=== PATIENT | male | born 1995 | race Caucasian/White ===

== ENCOUNTER 2018-09-08 01:39 | Emergency (ER) | payer SELFPAY ==
[2018-09-08 01:41] VITALS: BP 108/76; PULSE 101; RESP 16; TEMP 36.5; O2SAT 100; BMI 38.5
[2018-09-08] MEDS: 0.9% Normal Saline 1,000 ML 250 ML IV (01:55)
[2018-09-08] MEDS: Ondansetron 4 MG/2 ML Vial IV (01:55)
[2018-09-08] MEDS: Ketorolac 30 MG/ML Syringe IV (01:57)
[2018-09-08] MEDS: Morphine 4 MG/ML Syringe IV ×2 (01:58→03:05)
--- NOTE | 2018-09-08 02:08 | CT_ITS ---
STUDY: CT ABDOMEN AND PELVIS WITHOUT CONTRAST REASON FOR EXAM: Male, 23 years old. Right-sided flank pain. Patient has history of kidney stones. RADIATION DOSAGE (If Supplied By Facility): CTDIvol = ( 23.66 ) mGy, DLP = ( 1395.26 ) mGycm TECHNIQUE: Transaxial images were obtained from the dome of the diaphragm to the symphysis pubis without oral contrast, and without intravenous contrast. Sagittal and coronal images were reconstructed. Individualized dose optimization techniques were used for this CT. COMPARISON: None. FINDINGS: The visualized lung bases are unremarkable. The visualized portions of the heart are within normal limits. Normal liver. There is increased attenuation the gallbladder suggesting presence of gallstones and/or biliary sludge. Normal spleen. Normal pancreas. Normal bilateral adrenal glands. Both kidneys have multiple nonobstructing renal calculi measuring up to 2 mm. There is mild right-sided hydronephrosis and hydroureter secondary to a distal ureteral calculus measuring approximately 2 mm in size. Normal visualized stomach. There is no evidence for dilated bowel, ascites or pneumoperitoneum. The small bowel has a grossly normal appearance. The descending colon and sigmoid colon are nondistended which gives an appearance of mild thickening of the brown. Stool is visible elsewhere in the colon. There is suggestion for abnormal thickening of the brown of the proximal transverse colon as well that measures up to 9.5 mm in thickness. The appendix is visualized and appears normal. Normal abdominal aorta. Normal inferior vena cava. There is borderline retroperitoneal lymphadenopathy with enlarged nodes no greater than 10mm in the short axis diameter. Normal urinary bladder. Normal visualized prostate gland. There is a small umbilical hernia containing fat. Normal osseous structures. CT/Abdomen/Pelvis without Cont IMPRESSION: 1. Mild right-sided hydronephrosis and hydroureter secondary to distal ureteral calculus. 2. Bilateral nonobstructing renal calculi. 3. Probable cholelithiasis. 4. Nonspecific thickening of the brown of the colon may be the result of acute or chronic colitis. Electronically Signed: Nani Cantrell MD at 3:14 EST , Service support ,
--- NOTE | 2018-09-08 03:08 | ED.VISSUMM ---
- ER Visit Summary Date of Service: 09/08/18 Chief Complaint: Right flank pain History of Present Illness: The patient is a 23 M with no primary care physician. He reports his right flank pain began abruptly 1 hour ago. Pain was 8 out of 10 at worst and 7-10 currently. He describes it as sharp. Is worsened by nothing relieved by nothing. Is been nausea and vomited twice. No blood in his emesis. His last bowel was today. He said no diarrhea, melena, or hematochezia. No dysuria, frequency, or hematuria. Reports this is similar to when he had kidney stones in the past. Physical Examination: Vitals: Stable. Afebrile. General: Well-nourished and well-developed. Head: Normocephalic atraumatic. Neck: Supple, no lymphadenopathy. No JVD. Nontender. Cardiovascular: Regular rate and rhythm. No murmurs. Respiratory: No respiratory distress. Clear to auscultation bilaterally. Abdominal: Soft, nontender, nondistended, normal bowel sounds. No guarding, rebound, or peritoneal signs. Back: Mild right CVA tenderness. Extremities: Nontender, no edema. Skin: Normal color, no rash. Neurologic: Alert and oriented ?3. Cranial nerves II through XII are intact. Normal strength and sensation. Psych: Normal affect. Test Results: CT flank shows multiple nonobstructing renal calculi bilaterally. Mild right hydronephrosis/hydroureter secondary to a distal ureteral calculus its approximately 2 mm in size. UA is negative. Emergency Department Course and Treatment: Patient had an IV placed. He was treated with Toradol, Zofran, and morphine IV. He is resting comfortably. Treatment Plan: Patient will be discharged with Zofran, naproxen, and Percocet. Instructed to follow-up with Dr. Batista in 1 week if not improving. Return to the emergency department for any worsening symptoms. Disposition: To home in improved and stable condition. Impression: 1. Right ureterolithiasis. This note was generated with [employer] dictation software. It may contain incorrect words, spelling, and punctuation that were not noted in review of the chart prior to signing ED Disposition - Plan for ED Patient: Chief Complaint: Complaint Instructions: ED Stone Renal W Colic Prescriptions: Oxycodone HCl/Acetaminophen [Percocet 5/325] 1 tablet PO Q6H PRN PRN 3 Days #12 tablet PRN Reason: Pain Ondansetron [Zofran Odt] 4 mg PO Q8H PRN PRN #10 tablet PRN Reason: Nausea Naproxen [Naprosyn] 500 mg PO BID #14 tablet Referrals: Marcos Batista MD [STAFF PHYSICIAN] - 1 Week if not improving
[2018-09-08 04:14] LABS: Color, Urine Yellow (Yellow); Glucose, Dipstick Normal (Normal); Ketone-Dipstick 5 mg/dl (Negative); Leukocyte Esterase-Dipstick Negative /ul (Negative); Nitrite-Dipstick Negative (Negative); Occult Blood-Urine 50 /ul (Negative); Protein-Dipstick 15 mg/dl (Negative); Urine Bilirubin Dipstick Negative (Negative); Urine Clarity Sl. Cloudy (Clear); Urine Urobilinogen 1 mg/dl (Normal)
[2018-09-08 04:24] LABS: Mucous, Urine RARE /hpf (<or=2+); Red Blood Cells-Urine 10-25 SEEN /hpf (0-5); Squamous Epithelial Cells - UA 0-5 SEEN /hpf (0-5); White Blood Cells 0-5 SEEN /hpf (0-5)
[2018-09-08 04:25] LABS: Bacteria RARE /hpf (None Seen)
[2018-09-08] MEDS: Ondansetron ODT 4 MG Tablet PO (05:22)
[2018-09-08] MEDS: oxyCODONE 5 MG Tablet PO (05:22)
[2018-09-08 05:26] VITALS: BP 148/71; PULSE 81; RESP 16; O2SAT 98
== END 2018-09-08 05:27 | disposition home or self-care (01) ==
LOC: ED 02:37
PROVIDERS: Emergency Provider Emergency Medicine
DX: N13.2 Hydronephrosis with renal and ureteral calculous obstruction (principal); Z87.442 Personal history of urinary calculi
CPT/HCPCS: 74176; 81001; 96361; 96374; 96375; 96376; 99283; J7030; A4216; J2405

== ENCOUNTER 2018-12-24 16:57 | Emergency (ER) | payer OTHER, SELFPAY ==
[2018-12-24 16:58] VITALS: BP 143/95; PULSE 84; RESP 16; TEMP 36.8; O2SAT 98; BMI 36.2
--- NOTE | 2018-12-24 17:05 | CT_ITS ---
STUDY: CT ABDOMEN AND PELVIS WITHOUT CONTRAST REASON FOR EXAM: Male, 23 years old. Left-sided flank pain. RADIATION DOSAGE (If Supplied By Facility): CTDIvol = ( 23.06 ) mGy, DLP = ( 1238.78 ) mGycm TECHNIQUE: Transaxial images were obtained from the dome of the diaphragm to the symphysis pubis without oral contrast, and without intravenous contrast. Sagittal and coronal images were reconstructed. Individualized dose optimization techniques were used for this CT. COMPARISON: CT of abdomen and pelvis dated September 08, 2018. FINDINGS: The visualized lung bases are unremarkable. The visualized portions of the heart are within normal limits. Normal liver. The gallbladder is contracted. There is heterogeneous attenuation of the gallbladder suggesting possible cholelithiasis. There is mild splenomegaly. Normal pancreas. Normal bilateral adrenal glands. There are multiple nonobstructing renal calculi in both renal collecting systems with largest measuring about 3 mm. There is mild left-sided hydronephrosis and hydroureter secondary to a distal ureteral calculus measuring 4 mm in greatest dimension. The right kidney has a normal appearance otherwise. There is fluid distention of the stomach. There is no evidence for dilated bowel, ascites or pneumoperitoneum. The small bowel has a grossly normal appearance. The descending colon is mildly distended with mild thickening of the brown. There are scattered colonic diverticula. There is also mild thickening of the brown of sigmoid colon. The appendix is visualized and appears normal. Normal abdominal aorta. Normal inferior vena cava. Normal retroperitoneum. Normal urinary bladder. Normal visualized prostate gland. There is a small umbilical hernia containing fat. Normal osseous structures. CT/Abdomen/Pelvis without Cont IMPRESSION: Mild left-sided hydronephrosis and hydroureter secondary to distal ureteral calculus. Electronically Signed: Nani Cantrell MD at 18:12 EDT , Service support ,
[2018-12-24] MEDS: 0.9% Normal Saline 1,000 ML 125 ML IV (17:13)
[2018-12-24] MEDS: HYDROmorphone 1 MG/ML Syringe IV ×2 (17:13→19:06)
[2018-12-24] MEDS: Ketorolac 30 MG/ML Syringe IV (17:14)
[2018-12-24] MEDS: Ondansetron 4 MG/2 ML Vial IV (17:14)
[2018-12-24 17:29] LABS: Absolute Lymphocyte Count 3.09 X10^3/ul (0.83-4.51); Absolute Neutrophil Count 5.8 X10^3/uL (2.0-7.7); Basophil# 0.08 X10^3/uL; Basophil% 0.8 % (0-1); Eosinophil# 0.37 X10^3/uL; Eosinophils% 3.6 % (0-5); Hematocrit 48.1 % (40-54); Hemoglobin 17.1 g/dl (13.0-16.5); Lymphocyte # 3.09 X10^3/ul (4.0); Lymphocyte % 30.1 % (19-41); Mean Corp Hgb Conc 35.6 g/gl (32-36); Mean Corpuscular Hgb 29.5 pg (27.0-32.0); Mean Corpuscular Volume 83.1 fL (80-94); Mean Platelet Vol. 11.1 fl (6.2-12.0); Monocyte# 0.89 X10^3/uL; Monocyte% 8.7 % (0-10); Neutrophil # 5.75 X10^3/uL (2.7-7.7); Platelet Count 246 K/mm3 (150-450); RBC Distribution Width CV 12.5 % (11.6-14.6); RBC Distribution Width SD 37.5 fl (35.1-43.9); Red Blood Count 5.79 M/mm3 (4.6-6.2); White Blood Count 10.3 K/mm3 (4.4-11.0)
[2018-12-24 17:30] LABS: POSITIVE COUNT NO; POSITIVE DIFFERENTIAL NO; POSITIVE MORPHOLOGY NO
[2018-12-24 17:46] LABS: Anion Gap 9 (5-15); BUN 10 mg/dL (7-18); BUN/Creat Ratio 9.2 RATIO (10-20); Calcium,Total 9.1 mg/dL (8.5-10.1); Chloride 101 mmol/L (98-107); Creatinine, Serum 1.09 mg/dL (0.70-1.30); EST Glomerular Filtration Rate 88 mL/min (>60); Est Glom Filt Rate - Afr Amer 107 mL/min (>60); Estimated Creatinine Clearance 122.55 ml/min; Glucose 107 mg/dL (74-106); Potassium 3.3 mmol/L (3.5-5.1); Sodium Level 136 mmol/L (136-145)
--- NOTE | 2018-12-24 18:26 | ED.DCSUM_ITS ---
- ER Visit Summary Date of Service: 12/24/18 Chief Complaint: [Left flank pain] History of Present Illness: The patient is a 23 M [presents to the emergency department with pain in his left flank that started about an hour and a half ago. Patient states the pain initially was mild but then became severe. Patient is been sweating. Patient had similar pain in the past when his past kidney stones. His last kidney stone was over New Year's. Patient denies any fevers. He has had nausea but no vomiting. He denies any dysuria, urgency, or frequency.] Physical Examination: [HEENT-PERRLA, EOMI. Cranial nerves II through XII grossly intact. TMs clear. Mucous membranes moist. No adenopathy. Patient pacing in room and somewhat diaphoretic. Cardiovascular-regular rate and rhythm without murmur or ectopy Lungs-clear to auscultation, chest wall stable without crepitus or subcu emphysema Abdomen-normoactive bowel sounds, sof. Patient has some tenderness over left lower quadrant. Patient has CVA tenderness on the left.t Extremities-intact ?4, normal range of motion, normal pulses, atraumatic] Test Results: [CBC with differential was normal. Chemistries unremarkable other than a slightly depressed potassium of 3.3. CT flank showed a 4 mm distal left ureteral stone.] Urinalysis showed blood otherwise no signs of infection Emergency Department Course and Treatment: [Patient was medicated with Toradol, Zofran, and Dilaudid. Patient pain mostly resolved.] Treatment Plan: [Patient was given urine strainers and a prescription for Naprosyn and [place]. Patient was given referral to urologist for follow-up.] Disposition: [Discharged home in stable condition. Patient advised to return if increasing pain, fever, vomiting, or conditions worsen anyway.] Impression: [Kidney stone with colic] This note was generated with [employer] dictation software. It may contain incorrect words, spelling, and punctuation that were not noted in review of the chart prior to signing ED Disposition - Plan for ED Patient: Instructions: ED Stone Renal W Colic Prescriptions: Hydrocodone Bitart/Apap 5-325 [[place] 5MG-325MG] 1 tab PO Q4H PRN PRN 2 Days #20 tab PRN Reason: Pain Naproxen [Naprosyn] 500 mg PO BID PRN #20 tab Referrals: Marcos Batista MD [STAFF PHYSICIAN] - 5-7 Days Care Physician,No Primary [Primary Care Provider] -
--- NOTE | 2018-12-24 18:28 | DCINST.ED_ITS ---
ED Disposition - Plan for ED Patient: Instructions: ED Stone Renal W Colic Prescriptions: Hydrocodone Bitart/Apap 5-325 [[place] 5MG-325MG] 1 tab PO Q4H PRN PRN 2 Days #20 tab PRN Reason: Pain Naproxen [Naprosyn] 500 mg PO BID PRN #20 tab Referrals: Care Physician,No Primary [Primary Care Provider] - Marcos Batista MD [STAFF PHYSICIAN] - 5-7 Days
[2018-12-24 18:36] VITALS: BP 138/85; PULSE 78; RESP 16; O2SAT 99
[2018-12-24 18:42] LABS: Bacteria 0 SEEN /hpf (None Seen)
[2018-12-24 18:43] LABS: Color, Urine Yellow (Yellow); Glucose, Dipstick Normal (Normal); Ketone-Dipstick 5 mg/dl (Negative); Leukocyte Esterase-Dipstick 25 /ul (Negative); Nitrite-Dipstick Negative (Negative); Occult Blood-Urine 250 /ul (Negative); Protein-Dipstick 30 mg/dl (Negative); Urine Bilirubin Dipstick Negative (Negative); Urine Clarity Cloudy (Clear); Urine Urobilinogen 1 mg/dl (Normal)
[2018-12-24 18:56] LABS: Mucous, Urine 1+ /hpf (<or=2+); Red Blood Cells-Urine 50-100 SEEN /hpf (0-5); Squamous Epithelial Cells - UA 0-5 SEEN /hpf (0-5); White Blood Cells 0-5 SEEN /hpf (0-5)
== END 2018-12-24 19:11 | disposition home or self-care (01) ==
LOC: ED 17:11
PROVIDERS: Emergency Provider Emergency Medicine
DX: N13.2 Hydronephrosis with renal and ureteral calculous obstruction (principal); Z87.442 Personal history of urinary calculi
CPT/HCPCS: 74176; 80048; 81001; 85025; 96361; 96374; 96375; 96376; 99283; J7030; J2405